=== PATIENT | female | born 1955 | race Caucasian/White ===

== ENCOUNTER 2017-02-13 12:47 | Observation (INO) | payer SELFPAY ==
--- NOTE | 2017-02-13 13:13 | DR.GENAD ---
HPI - PCP Primary Care Physician: RAHEEL HOSKINS - HPI Comment HPI Comment: PAIN IS SHARP AND RADIATES TO THE BACK. PAIN NOT RESPONDING TO ANTACID.PATIENT SAID PAIN WORSE TODAY. SHE IS WEAK SLIGHTLY NAUSEATED. NO FEVER. - Complaint/Symptoms Chief Complaint Doctors Comments: CHEST PAIN UNDER RIGHT BREAST TIMES 3 WEEKS. Chief Complaint:: PT. C/O PAIN UNDER RIGHT BREAST THAT RADIATES THROUGH TO BACK. PT. HAS TAKEN ANTACIDS WITH NO RELIEF. PAIN HAS BEEN INTERMITTENT X 3 WEEKS WHICH WORSENED LAST NIGHT. - Nurses notes reviewed Nurses Notes Review: Yes - Source History Provided: Patient - Mode of Arrival Mode of Arrival: Ambulatory - Timing Onset of Chief Complaint: 02/12/17 Came on: Suddenly - Duration Duration: Intermittent Duration: Weeks - Severity Severity: Moderate PMH - PMH Past Medical History: Yes Past Medical History: Diabetes, Hypertension Past Medical History Comment: FIBROMYALGIA, CARPAL TUNNEL, SPINAL STENOSIS Past Surgical History: Yes Surgical History: Hysterectomy Past Surgical History Comment: CARPAL TUNNEL, HERNIA REPAIR - Family History History of Family Medical Conditions: Yes Family Medical History: Diabetes Mellitus, Hypertension - Social History Does patient currently use any type of tobacco product: No Type of Tobacco Use: None Does any household member use tobacco: No Alcohol Use: None Do you use any recreational Drugs:: No Lives With: Spouse Lives Where: Home - infectious screening In the last 2 months have you had wt loss of >10#?: NO Have you had fever, night sweats or hemotysis?: No Have you traveled outside the country in the last 6 months?: No Isolation: Standard ROS - Review of Systems Constitutional: Weakness, Fatigue. negative: Chills, Diaphoresis, Fever Eyes: No Symptoms Reported. negative: Eye Pain, Discharge ENTM: No Symptoms Reported. negative: Ear Pain, Nose Discharge, Nose Congestion , Throat Pain Respiratoy: Non-Productive Cough, Short of Breath. negative: Productive Cough, Wheezing, Hemoptysis Cardiovascular: Chest Pain. negative: Edema, Palpitations, Syncope Gastrointestinal/Abdominal: Abdominal Pain, Nausea. negative: Constipation, Diarrhea, Vomiting Genitourinary: No Symptoms Reported. negative: Dysuria, Frequency, Hematuria Neurological: Headache, Weakness, Dizziness Musculoskeletal: Muscle Pain Integumentary: Dryness. negative: Rash, Bruises, Juandice Hematologic/Lymphatic: Easy Bleeding, Easy Bruising Endocrine: Increased Urine. negative: Flushing All Other Systems: Reviewed and Negative PE - Vital Signs Vitals: Pulse Rate 85 Respiratory Rate 18 Blood Pressure 226/107 O2 Sat by Pulse Oximetry 99 - General Limitations: No Limitations General Appearance: Alert - Head Head Exam: Normal Inspection - Eyes Eye exam: Normal Appearance - ENT ENT Exam: Normal External Ear Exam External Ear Exam: Normal External Inspection TM/Canal Exam: Bilateral Normal Nose Exam: Normal Nose Exam, Sinus Tenderness, Nasal Deviation Mouth Exam: Normal Inspection Throat Exam: Normal Inspection - Neck Neck Exam: Normal Inspection - Chest Chest Inspection: Symmetric Chest Wall Rise - Respiratory Respiratory Exam: Normal Lung Sounds Bilat Respiratory Exam: Bilateral Clear to Auscultation - Cardiovascular Cardiovascular Exam: Regular Rate, Normal Rhythm, Normal Heart Sounds - Abdominal Exam Abdominal Exam: Normal Bowel Sounds, Soft. negative: Tenderness - Extremities Extremities Exam: Normal Inspection - Back Back Exam: Normal Inspection - Neurologic Neurological Exam: Alert, Oriented X3, CN II-XII Intact, Normal Gait, Reflexes Normal. negative: Motor Sensory Deficit - Psychiatric Psychiatric Exam: Normal Affect, Normal Mood - Skin Skin Exam: Normal Color MDM - Additional Information Additional Information Obtained From: Family - Differential Diagnosis Differential Diagnosis: CHEST PAIN, PE, PNEUMONIA, IN, PUD, CHOLECYSTITIS Course - Treatment Treatment: SEE ORDERS - Consultation Consultation Comments: DISCUSS PATIENT WITH DR. MITCHELL. HE WILL ADMIT PATIENT. - Education/Counseling Education/Counseling: Patient, Family, Education Educated On: Treatment, Diagnosis ROR - Labs Reviewed Laboratory Results Reviewed?: Yes Result Diagrams: 02/14/17 02:20 02/14/17 02:20 - XRAY XRAY Interpreted by: Radiologist XRAY Findings: REPORT DISCUSS WITH PATIENT. - EKG Rhythm: NSR (EKG NOTED.) - Diagnosis Discharge Problem: Elevated d-dimer, Helicobacter positive gastritis Chest pain Qualifiers: Chest pain type: other chest pain Qualified Code(s): R07.89 - Other chest pain ; R07.8 - Other chest pain UTI (urinary tract infection) Qualifiers: Urinary tract infection type: site unspecified Hematuria presence: without hematuria Qualified Code(s): N39.0 - Urinary tract infection, site not specified - Discharge Plan Disposition: ADMITTED INPATIENT Condition: Stable - Follow ups/Referrals - Instructions
[2017-02-13 13:48] LABS: BASOPHILS # (AUTO) 0.1 X10^3/uL (0.0-0.1); BASOPHILS % (AUTO) 0.8 % (0.2-1.0); EOSINOPHILS # (AUTO) 0.5 x10^3/uL (0.0-0.2); EOSINOPHILS % (AUTO) 8.4 % (0.9-2.9); HEMATOCRIT 37.6 % (36.0-47.0); HEMOGLOBIN 12.7 g/dL (12.0-16.0); LYMPHOCYTES % (AUTO) 31.3 % (21.0-51.0); MEAN CORPUSCULAR HEMOGLOBIN 28.1 pg (27.0-34.0); MEAN CORPUSCULAR HGB CONC 33.9 g/dL (33.0-35.0); MEAN CORPUSCULAR VOLUME 82.8 fL (80.0-100.0); MEAN PLATELET VOLUME 8.3 fL (7.4-11.0); MONOCYTES # (AUTO) 0.4 x10^3/uL (0.3-0.8); MONOCYTES % (AUTO) 5.8 % (0.0-13.0); NEUTROPHILS # (AUTO) 3.5 x10^3/uL (2.2-4.8); NEUTROPHILS % (AUTO) 53.7 % (42.0-75.0); PLATELET COUNT 126 X10^3/uL (150.0-450.0); RED BLOOD COUNT 4.54 X10^6/uL (3.5-5.4); WHITE BLOOD COUNT 6.5 X10^3/uL (3.6-10.0)
[2017-02-13 13:59] LABS: APPEARANCE,URINE HAZY (CLEAR); BACTERIA,URINE 4+ /HPF (NEGATIVE); BILIRUBIN,URINE NEGATIVE (NEGATIVE); BLOOD/HEMOGLOBIN,URINE 1+ (NEGATIVE); COLOR,URINE YELLOW (YELLOW); GLUCOSE, URINE 4+ (NEGATIVE); KETONES,URINE NEGATIVE (NEGATIVE); LEUKOCYTE ESTERASE ,URINE 1+ (NEGATIVE); NITRITES,URINE NEGATIVE (NEGATIVE); PROTEIN,URINE 3+ (NEGATIVE); RBC,URINE 0-2 /HPF (NEGATIVE); SQUAMOUS EPITHELIAL CELL,UR NEGATIVE /HPF (NEGATIVE); UROBILINOGEN,URINE NORMAL (NORMAL)
[2017-02-13 14:01] LABS: ALANINE AMINOTRANSFERASE 49 Units/L (12-78); ALBUMIN 3.4 g/dL (3.4-5.0); ALKALINE PHOSPHATASE 90 Units/L (46-116); AMYLASE 55 Units/L (25-115); ASPARTATE AMINO TRANSFERASE 42 Units/L (15-37); BLOOD UREA NITROGEN 19 mg/dL (7-18); CALCIUM 9.3 mg/dL (8.5-10.1); CARBON DIOXIDE 26.2 mmol/L (21-32); CHLORIDE 101 mmol/L (98-107); COR NA(FOR HYPERGLY) 142 mmol/L (136-145); CREATININE 1.24 mg/dL (0.55-1.02); GLUCOSE 312 mg/dL (65-99); LIPASE 377 Units/L (73-393); SODIUM 137 mmol/L (136-145); TOTAL PROTEIN 7.4 g/dL (6.4-8.2); eGFR BLACK RACES 57 (>60); eGFR NON BLACK RACES 47 (>60)
[2017-02-13 14:24] LABS: D DIMER 2690 ng/mL (0-400)
[2017-02-13] MEDS ORDERED: LEVSIN/MAALOX/LIDOC VISC PO ONE (14:59)
[2017-02-13] MEDS ORDERED: CATAPRES TAB 0.2 MG PO ONE (14:59)
[2017-02-13] MEDS ORDERED: PEPCID TAB 20 MG PO ONE (15:01)
[2017-02-13] MEDS ORDERED: LEVSIN/MAALOX/LIDOC VISC ONE (15:03)
[2017-02-13] MEDS ORDERED: PEPCID TAB 20 MG ONE (15:03)
[2017-02-13] MEDS ORDERED: CATAPRES TAB 0.2 MG ONE (15:03)
--- NOTE | 2017-02-13 16:53 | RAD ---
HISTORY: Chest pain. Study: Single-view chest. Comparison: None. Findings: The trachea is midline. The cardiac silhouette is within normal limits. The lungs are clear withou t focal infiltrate or effusion. The bony thorax is unremarkable. IMPRESSION: No acute cardiopulmonary disease. Reported By:
[2017-02-13 17:43] VITALS: BMI 31.2
[2017-02-13] MEDS: NS 1000 ML 1,000 ML IV SCH (17:50)
[2017-02-13 21:00] LABS: CKMB % 1.4 % (<4); CREATINE KINASE 72 Units/L (26-192); CREATINE KINASE MB < 1.0 ng/mL (0-4.0); TROPONIN I < 0.02 ng/mL (0-1.5)
[2017-02-14 02:57] LABS: BASOPHILS % (AUTO) 0.4 % (0.2-1.0); EOSINOPHILS # (AUTO) 0.4 x10^3/uL (0.0-0.2); EOSINOPHILS % (AUTO) 6.1 % (0.9-2.9); HEMATOCRIT 33.1 % (36.0-47.0); HEMOGLOBIN 11.2 g/dL (12.0-16.0); LYMPHOCYTES # (AUTO) 2.1 X10^3/uL (1.3-2.9); LYMPHOCYTES % (AUTO) 32.3 % (21.0-51.0); MEAN CORPUSCULAR HEMOGLOBIN 28.1 pg (27.0-34.0); MEAN CORPUSCULAR HGB CONC 33.9 g/dL (33.0-35.0); MEAN CORPUSCULAR VOLUME 82.9 fL (80.0-100.0); MEAN PLATELET VOLUME 8.6 fL (7.4-11.0); MONOCYTES # (AUTO) 0.4 x10^3/uL (0.3-0.8); MONOCYTES % (AUTO) 6.2 % (0.0-13.0); NEUTROPHILS # (AUTO) 3.6 x10^3/uL (2.2-4.8); PLATELET COUNT 110 X10^3/uL (150.0-450.0); RED BLOOD COUNT 3.99 X10^6/uL (3.5-5.4); WHITE BLOOD COUNT 6.6 X10^3/uL (3.6-10.0)
[2017-02-14 03:04] LABS: CHLORIDE 104 mmol/L (98-107); SODIUM 139 mmol/L (136-145)
[2017-02-14 03:09] LABS: CKMB % 1.6 % (<4); CREATINE KINASE 64 Units/L (26-192); CREATINE KINASE MB < 1.0 ng/mL (0-4.0); TROPONIN I < 0.02 ng/mL (0-1.5)
[2017-02-14 03:25] LABS: ALANINE AMINOTRANSFERASE 40 Units/L (12-78); ALKALINE PHOSPHATASE 73 Units/L (46-116); ASPARTATE AMINO TRANSFERASE 37 Units/L (15-37); BLOOD UREA NITROGEN 20 mg/dL (7-18); CALCIUM 8.4 mg/dL (8.5-10.1); CARBON DIOXIDE 28.4 mmol/L (21-32); CHOL/HDL RATIO 4.7 (0.0-5.0); CHOLESTEROL 192 mg/dL (0-200); COR CA(FOR HYPOALB) 9.2 mg/dL (8.5-10.1); COR NA(FOR HYPERGLY) 142 mmol/L (136-145); CREATININE 1.06 mg/dL (0.55-1.02); GLUCOSE 231 mg/dL (65-99); HDL CHOLESTEROL 41 mg/dL (40-60); TOTAL PROTEIN 5.9 g/dL (6.4-8.2); TRIGLYCERIDES 244 mg/dL (0-150); eGFR BLACK RACES > 60 (>60); eGFR NON BLACK RACES 56 (>60)
[2017-02-14] MEDS ORDERED: HumuLIN R SC PRN ×2 (04:40→05:19)
[2017-02-14] MEDS: NS 1000 ML 1,000 ML IV SCH (06:15)
[2017-02-14] MEDS ORDERED: CATAPRES TAB 0.2 MG PO SCH (09:00)
[2017-02-14] MEDS ORDERED: ROCEPHIN VIAL 1 GM 1 GM in NS 50 ML IV + SPIKE MINIBAG* 50 ML IV SCH (09:00)
--- NOTE | 2017-02-14 10:02 | NM ---
History: Elevated D-dimer, shortness of breath, chest pain Study: Nuclear medicine VQ scan Findings: 30.3 millicuries of Tc 9 M aerosolized DTPA was inhaled equilibrium with imaging in multip le planes performed. 5.4 millicuries of Tc 9 M macro aggregated albumin was then administered intrav enously with similar imaging performed. Correlation is made with the previous day's chest radiograph . There is uniform bilateral ventilation and profusion with no segmental or subsegmental perfusion d efects identified. Impression: Normal V/Q scan with almost 0 probability of pulmonary embolus. Reported By:
[2017-02-14] MEDS ORDERED: MAALOX or MYLANTA PO PRN (12:34)
[2017-02-14 14:39] VITALS: BP 128/63
--- NOTE | 2017-02-21 22:43 | DR.CARTERS ---
Short Stay Summary - Short Stay Summary for: Short Stay Summary for Date of:: 02/13/17 - Admission Date Date of Admission: 02/13/17 - Discharge Date Discharge Date: 02/14/17 - Admission Diagnoses (1) Chest pain Status: Acute (2) Elevated d-dimer Status: Acute (3) Helicobacter positive gastritis Status: Acute (4) UTI (urinary tract infection) Status: Acute - Hospital Course Hospital Course: PT. C/O PAIN UNDER RIGHT BREAST THAT RADIATES THROUGH TO BACK. PT. HAS TAKEN ANTACIDS WITH NO RELIEF. PAIN HAS BEEN INTERMITTENT X 3 WEEKS WHICH WORSENED LAST NIGHT. THE PATIENT HAD ELEVATED D DIMER WITH NEGATIVE LUNG SCAN. LABS WERE STABLE. PATIENT'S PAIN DID IMPROVE. WAS FELT STABLE FOR DC AND WAS DC HOME TO BE FOLLOWED ON OP BASIS. - Discharge Medications Discharge Medications: Amoxicillin/Potassium Clav [Amox-Clav 500-125 mg Tablet] 1 tab PO Q12H 02/13/17 [History] Benzonatate [TESSALON PERLES *] 100 mg PO TID 02/13/17 [History] Glipizide [Glipizide 10 mg] 10 mg PO BID 02/13/17 [History] Ibuprofen 200 mg PO PRN PRN 02/13/17 [History] Insulin Detemir (Levemir) [LEVEMIR INSULIN *] 20 units SQ PC 02/13/17 [History] Insulin Detemir (Levemir) [LEVEMIR INSULIN *] 25 units SQ PC 02/13/17 [History] Insulin Detemir (Levemir) [LEVEMIR INSULIN *] 50 units SQ HS 02/13/17 [History] Levothyroxine Sodium 50 mg PO 02/13/17 [History] Lisinopril 20 mg PO BID 02/13/17 [History] Lovastatin 20 mg PO DAILY 02/13/17 [History] Metformin HCl [Glucophage] 1,000 mg PO BID 02/13/17 [History] - Discharge Plan Disposition: 01 HOME, SELF-CARE Condition: Stable - Follow up/Referrals Follow up/Referrals: CHEPE ALMODOVAR [Primary Care Provider] - 3 days - Instructions Instructions: Hypertension, Angina Pectoris, [id number]
== END 2017-02-14 15:09 | disposition home or self-care (01) ==
LOC: ER 12:55 → MED/SURG 16:10
PROVIDERS: ADMIT Internal Medicine; ATTEND Internal Medicine
DX: R07.89 Other chest pain (principal); N39.0 Urinary tract infection, site not specified; B96.81 Helicobacter pylori [H. pylori] as the cause of diseases classified elsewhere; B96.29 Other Escherichia coli [E. coli] as the cause of diseases classified elsewhere; I10 Essential (primary) hypertension; R79.1 Abnormal coagulation profile; D64.89 Other specified anemias; R94.4 Abnormal results of kidney function studies; R74.8 Abnormal levels of other serum enzymes; R94.31 Abnormal electrocardiogram [ECG] [EKG]; E11.65 Type 2 diabetes mellitus with hyperglycemia; Z79.4 Long term (current) use of insulin
CPT/HCPCS: 36415; 71010; 78582; 80053; 80061; 81001; 82009; 82150; 82550; 82553; 83690; 84484; 85025; 85378; 86677; 87086; 87088; 87186; 93005; 93010; 94760; 96365; 99218; 99284; A4222; G0378; J0696; J1815

== ENCOUNTER → 2017-03-22 | Outpatient (CLI) | payer SELFPAY ==
--- NOTE | 2017-03-22 09:35 | US ---
RIGHT UPPER QUADRANT ULTRASOUND HISTORY: RUQ pain Comparison: None Technique: Multiple arguelles scale and color flow Doppler images of the right upper quadrant were obtain ed. Findings: Overall study is limited by overlying bowel gas. The liver is normal in echotexture and size. No fo cassandra mass. No intrahepatic bile duct dilatation. No gallstones. No pericholecystic fluid or gallbladd er wall thickening. The technologist did not report a positive sonographic Mejía's sign. The common bile duct measures 3 mm. The right kidney measures 8.4 cm. No hydronephrosis or renal masses. The pancreas is obscured by o verlying bowel gas. IMPRESSION: 1. Negative right upper quadrant ultrasound. Reported By:
== END ==
LOC: RAD 08:54
PROVIDERS: ATTEND Nurse Practitioner Family
DX: R11.2 Nausea with vomiting, unspecified (principal); R10.11 Right upper quadrant pain; K90.49 Malabsorption due to intolerance, not elsewhere classified; K21.9 Gastro-esophageal reflux disease without esophagitis
CPT/HCPCS: 76705

== ENCOUNTER → 2017-03-25 | Outpatient (CLI) | payer SELFPAY ==
--- NOTE | 2017-03-25 12:25 | NM ---
HISTORY: Right upper quadrant pain Study: Nuclear medicine HIDA scan with ejection fraction Comparison: None Technique: Multiple scintigraphic images of the abdomen were obtained the intravenous administration of 5.5 mCi of technetium labeled Choletec. Following distention of the gallbladder with radiotracer the patient received a fatty meal.. An est imated gallbladder ejection fraction was calculated based on the physiologic response of this infusi on. Findings: Homogeneous uptake of radiotracer is seen throughout the liver. This intrabiliary ductal system is observed normally. The common hepatic and common bile duct grossly appear unremarkable with normal biliary-bowel transit. The gallbladder is observed to fill normally. After the fatty meal a normal gallbladder ejection fraction of 35.4% (normal > 35%) is observed. IMPRESSION: 1. Normal hepatobiliary imaging scan. 2. Normal gallbladder ejection fraction 35.4% Reported By:
== END ==
LOC: RAD 08:44
PROVIDERS: ATTEND Nurse Practitioner Family
DX: R11.2 Nausea with vomiting, unspecified (principal); R10.11 Right upper quadrant pain; K90.49 Malabsorption due to intolerance, not elsewhere classified; K21.9 Gastro-esophageal reflux disease without esophagitis
CPT/HCPCS: 78227

== ENCOUNTER 2017-04-06 02:02 | Emergency (ER) | payer SELFPAY ==
[2017-04-06 02:13] VITALS: BP 177/90; BMI 30.6
--- NOTE | 2017-04-06 02:46 | DR.GENAD ---
HPI - PCP Primary Care Physician: PAULA - Complaint/Symptoms Chief Complaint:: "I AM SHORT OF BREATH FOR THE LAST FEW DAYS. I AM ALWAYS SHORT OF BREATH BUT LAST FEW DAYS AND TONIGHT IT HAS BEEN WORSE, I CAN HEAR MYSELF WHEEZING. 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 IT FEELS LIKE A SUNBURN ON THE INSIDE." - Source History Provided: Patient - Mode of Arrival Mode of Arrival: Ambulatory - Timing Onset of Chief Complaint: 04/06/17 PMH - PMH Past Medical History: Yes Past Medical History: Diabetes, Hypertension Past Surgical History: Yes Surgical History: Hysterectomy - Family History History of Family Medical Conditions: No Family Medical History: Diabetes Mellitus, Hypertension - Social History Does patient currently use any type of tobacco product: No Have you used tobacco products in the last 12 months: No Type of Tobacco Use: None Does any household member use tobacco: No Alcohol Use: None Do you use any recreational Drugs:: No Lives With: Spouse Lives Where: Home - infectious screening Have you traveled outside the country in the last 6 months?: No Isolation: Standard ROS - Review of Systems Eyes: No Symptoms Reported ENTM: No Symptoms Reported Respiratoy: No Symptoms Reported Cardiovascular: No Symptoms Reported Gastrointestinal/Abdominal: No Symptoms Reported Genitourinary: No Symptoms Reported, Discharge Neurological: No Symptoms Reported Musculoskeletal: No Symptoms Reported Integumentary: No Symptoms Reported Hematologic/Lymphatic: No Symptoms Reported Endocrine: No Symptoms Reported Psychiatric: No Symptoms Reported All Other Systems: Reviewed and Negative PE - Vital Signs Vitals: Temperature 97.9 F Pulse Rate 90 Respiratory Rate 20 Blood Pressure [Left Arm] 128/63 Blood Pressure 177/90 O2 Sat by Pulse Oximetry 98 - General Limitations: No Limitations General Appearance: Alert - Head Head Exam: Normal Inspection - Eyes Eye exam: Normal Appearance, PERRL, EOMI - ENT ENT Exam: Normal Exam, Normal Oropharynx External Ear Exam: Normal External Inspection TM/Canal Exam: Bilateral Normal Nose Exam: Normal Nose Exam, Sinus Tenderness Mouth Exam: Normal Inspection Throat Exam: Normal Inspection - Neck Neck Exam: Normal Inspection, Full ROM - Chest Chest Inspection: Normal Inspection - Respiratory Respiratory Exam: Normal Lung Sounds Bilat Respiratory Exam: Bilateral Clear to Auscultation - Cardiovascular Cardiovascular Exam: Regular Rate, Normal Rhythm - Abdominal Exam Abdominal Exam: Normal Inspection, Normal Bowel Sounds Abdominal Tenderness: negative: RUQ, RLQ, LUQ, LLQ, Epigastrium, Suprapubic, Diffuse, Mild, Moderate, Severe, Other - Extremities Extremities Exam: Normal Inspection, Full ROM - Back Back Exam: Normal Inspection, Full ROM - Neurologic Neurological Exam: Alert, Oriented X3, CN II-XII Intact - Psychiatric Psychiatric Exam: Normal Affect, Normal Mood - Skin Skin Exam: Warm, Dry, Intact ROR - XRAY XRAY Interpreted by: Radiologist (Thoracic Spine: moderate degenerative disc changes are seen throughout the thoracic spine. 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
--- NOTE | 2017-04-06 03:25 | RAD ---
EXAM: Thoracic Spine X-Ray INDICATION: Thoracic pain COMPARISION: No priors for comparison TECHNIQUE: AP and lateral views were obtained, two views FINDINGS: Moderate disk space narrowing is seen throughout the thoracic levels. No acute fracture or subluxati on. The vertebral body heights are preserved. The visualized pedicles are intact. IMPRESSION: Moderate degenerative disc changes are seen throughout the thoracic spine. No acute abnormality is i dentified. Reported By:
== END 2017-04-06 03:54 | disposition home or self-care (01) ==
LOC: ER 02:02
DX: M47.814 Spondylosis without myelopathy or radiculopathy, thoracic region (principal)
CPT/HCPCS: 72072; 99282

== ENCOUNTER 2017-10-31 23:44 | Emergency (ER) | payer SELFPAY ==
[2017-10-31 23:49] VITALS: BMI 31.9
--- NOTE | 2017-11-01 00:40 | DR.SOBA ---
HPI - Time Seen Time seen: 00:15 - Primary Care Physician Primary Care Physician: RICARDA ALMODOVAR - HPI Comment HPI Comment: PATIENT IS 62YR OLD WHITE FEMALE WITH HISTORY OF HYPERTENSION, HYPOTHYROIDISM, HYLIPIDEMIA AND DIABETES WHO PRESENTS TO ED WITH INCREASING SOB AND CHEST PAIN. TONIGHT SHE COULD NOT BREATH. SHE IS WEAK BUT NO FEVER. SHE IS WHEEZING. - Complaints Chief Complaint Doctors Comments: INCREASING SOB TIMES 3 TO 4 DAYS. TONIGHT CHEST PAIN ALSO. Chief Complaint:: SHORT OF BREATH FOR SEVERAL DAYS, SEEN MY GRAPHIC TECHNICIAN RICARDA ALMODOVAR TODAY BUT SHE DIDN'T DO ANYTHING BC SHE DOESN'T KNOW WHAT IT IS. I AM WHEEZING, SO THIS IS LIKE ASTHMA. - Reviewed Nurses Notes Reviewed: Yes - Source History Provided: Patient - Mode of Arrival Mode of Arrival: Ambulatory - Timing Onset of Chief Complaint: 10/28/17 - Duration Duration: Days - Context Onset:: At Rest, With Light Exertion PE Risk Factors:: None History of:: None Currently on:: Neither Prehospital Care:: None - Modifying Factors Worsens:: Nothing Improves:: Nothing - Associated Signs and Symptoms Associated Signs and Symptoms: Wheeze, Cough - If Chest Pain Quality: Sharp, Pressure like Location: Substernal - If Cough Cough: Nonproductive, White PMH - PMH Past Medical History: Yes Past Medical History: Diabetes, Hypertension Past Surgical History: Yes Surgical History: Hysterectomy - Family History History of Family Medical Conditions: Yes Family Medical History: Diabetes Mellitus, Hypertension - Social History Does patient currently use any type of tobacco product: No Have you used tobacco products in the last 12 months: No Type of Tobacco Use: None Alcohol Use: None Do you use any recreational Drugs:: No Lives With: Spouse Lives Where: Home - infectious screening Have you traveled outside the country in the last 6 months?: No Isolation: Standard ROS - Review of Systems Constitutional: Weakness, Fatigue. negative: Chills, Diaphoresis, Fever Eyes: negative: Eye Pain, Discharge ENTM: Nose Congestion. negative: Ear Pain, Nose Discharge, Throat Pain Respiratoy: Productive Cough, Short of Breath, Wheezing. negative: Hemoptysis Cardiovascular: Chest Pain. negative: Edema, Palpitations Gastrointestinal/Abdominal: negative: Abdominal Pain, Diarrhea, Nausea, Vomiting Genitourinary: No Symptoms Reported. negative: Dysuria, Frequency, Hematuria Neurological: Weakness, Dizziness. negative: Headache Musculoskeletal: No Symptoms Reported Integumentary: No Symptoms Reported Hematologic/Lymphatic: No Symptoms Reported Endocrine: No Symptoms Reported All Other Systems: Reviewed and Negative PE - Vital Signs Vitals: Temperature 97.6 F Pulse Rate [Right Brachial] 97 Pulse Rate [Apical] 100 Pulse Rate 107 Respiratory Rate 19 Blood Pressure [Left Arm] 115/59 Blood Pressure 154/71 O2 Sat by Pulse Oximetry 100 - General Limitations: No Limitations General Appearance: Alert - Head Head Exam: Normal Inspection - Eyes Eye exam: Normal Appearance - ENT ENT Exam: Normal External Ear Exam - Neck Neck Exam: Trachea Midline - Chest Chest Inspection: Symmetric Chest Wall Rise - Respiratory Respiratory Exam: Respiratory Distress. negative: Chest Wall Tenderness Respiratory Exam: Bilateral Wheezing, Bilateral Rhonchi, Upper Rhonchi, Lower Wheezing, Lower Rhonchi - Cardiovascular Cardiovascular Exam: Regular Rate, Normal Rhythm, Normal Heart Sounds - Abdominal Exam Abdominal Exam: Normal Bowel Sounds, Soft. negative: Tenderness - Extremities Extremities Exam: Normal Inspection. negative: Edema - Back Back Exam: Normal Inspection - Neurologic Neurological Exam: Alert, Oriented X3, CN II-XII Intact. negative: Motor Sensory Deficit - Psychiatric Psychiatric Exam: Anxious - Skin Skin Exam: Normal Color MDM - Additional Information Obtained Additional Information Obtained From: Family - Differential Diagnosis Differential Diagnosis: Asthma, Bronchitis, CHF, COPD, Dysrhythmia, Mycardial Infarction, Pneumonia, Pneumothorax, Pulmonary embolism, Sinusitis Course - Treatment Treatment: SEE ORDERS. - Consultation Consultation Comments: PATIENT ACEPTED FOR TRANSFER BY DR. DAVENPORT AT [facility] IN [place]. - Education/Counseling Education/Counseling: Patient, Family, Education Educated On: Treatment, Diagnosis, Needs for Follow Up ROR - Labs Reviewed Laboratory Results Reviewed?: Yes Result Diagrams: 11/01/17 00:09 11/01/17 00:09 Laboratory: WBC 7.1 X10^3/uL (3.6-10.0) 11/01/17 00:09 RBC 3.36 X10^6/uL (3.5-5.4) L 11/01/17 00:09 Hgb 8.0 g/dL (12.0-16.0) L 11/01/17 00:09 Hct 25.0 % (36.0-47.0) L 11/01/17 00:09 MCV 74.5 fL (80.0-100.0) L 11/01/17 00:09 MCH 23.8 pg (27.0-34.0) L 11/01/17 00:09 MCHC 32.0 g/dL (33.0-35.0) L 11/01/17 00:09 RDW 16.8 % (11.6-16.5) H 11/01/17 00:09 Plt Count 165 X10^3/uL (150.0-450.0) 11/01/17 00:09 Plt Count Comment Adequate (ADEQUATE) 11/01/17 00:09 MPV 9.0 fL (7.4-11.0) 11/01/17 00:09 Neut % (Auto) 53.3 % (42.0-75.0) 11/01/17 00:09 Lymph % (Auto) 33.5 % (21.0-51.0) 11/01/17 00:09 [place] % (Auto) 5.1 % (0.0-13.0) 11/01/17 00:09 Eos % (Auto) 7.2 % (0.9-2.9) H 11/01/17 00:09 Baso % (Auto) 0.9 % (0.2-1.0) 11/01/17 00:09 Neut # (Auto) 3.8 x10^3/uL (2.2-4.8) 11/01/17 00:09 Lymph # (Auto) 2.4 X10^3/uL (1.3-2.9) 11/01/17 00:09 [place] # (Auto) 0.4 x10^3/uL (0.3-0.8) 11/01/17 00:09 Eos # (Auto) 0.5 x10^3/uL (0.0-0.2) H 11/01/17 00:09 Baso # (Auto) 0.1 X10^3/uL (0.0-0.1) 11/01/17 00:09 Absolute Nucleated RBC 0.0 /100WBC 11/01/17 00:09 Plt Morphology Comment Normal (NORMAL) 11/01/17 00:09 RBC Morphology Abnormal (NORMAL) A 11/01/17 00:09 Hypochromasia 1+ A 11/01/17 00:09 INR Target Range - 11/01/17 00:09 INR 1.03 (0.8-1.3) 11/01/17 00:09 APTT 33.0 SECONDS (22.9-36.5) 11/01/17 00:09 PTT Comment - 11/01/17 00:09 D-Dimer 180 ng/mL (0-400) 11/01/17 00:09 Sodium 139 mmol/L (136-145) 11/01/17 00:09 Corrected Sodium 145 mmol/L (136-145) 11/01/17 00:09 Potassium 4.9 mmol/L (3.5-5.1) 11/01/17 00:09 Chloride 103 mmol/L (98-107) 11/01/17 00:09 Carbon Dioxide 25.3 mmol/L (21-32) 11/01/17 00:09 BUN 46 mg/dL (7-18) H 11/01/17 00:09 Creatinine 1.61 mg/dL (0.55-1.02) H 11/01/17 00:09 Est GFR (MDRD) Af Amer 42 (>60) L 11/01/17 00:09 Est GFR (MDRD) Non-Af 34 (>60) L 11/01/17 00:09 Glucose 346 mg/dL (65-99) H 11/01/17 00:09 Calcium 9.3 mg/dL (8.5-10.1) 11/01/17 00:09 Corrected Calcium TNP 11/01/17 00:09 Magnesium 1.9 mg/dL (1.7-2.9) 11/01/17 00:09 Total Bilirubin 0.20 mg/dL (0.2-1.0) 11/01/17 00:09 AST 37 Units/L (15-37) 11/01/17 00:09 ALT 30 Units/L (12-78) 11/01/17 00:09 Alkaline Phosphatase 68 Units/L (46-116) 11/01/17 00:09 Creatine Kinase 177 Units/L (26-192) 11/01/17 00:09 CK-MB (CK-2) 4.9 ng/mL (0-4.0) H* 11/01/17 00:09 CK/CKMB % Calc 2.8 % (<4) 11/01/17 00:09 Troponin I 1.17 ng/mL (0-1.5) 11/01/17 00:09 B-Natriuretic Peptide 105 pg/mL (0-79) H 11/01/17 00:09 Total Protein 7.0 g/dL (6.4-8.2) 11/01/17 00:09 Albumin 3.4 g/dL (3.4-5.0) 11/01/17 00:09 Globulin 3.6 g/dL (2.5-4.5) 11/01/17 00:09 Albumin/Globulin Ratio 0.9 Ratio (1.1-2.1) L 11/01/17 00:09 Stool Description Fob tube 11/01/17 01:52 Stl Occult Blood (IFOB) Negative (NEGATIVE) 11/01/17 01:52 Acetone, Semi-Quant Negative (NEGATIVE) 11/01/17 00:09 - XRAY XRAY Interpreted by: Radiologist XRAY Findings: REPORT DISCUSS WITH PATIENT AND HER . - EKG Rhythm: ST - Diagnosis Discharge Problem: Respiratory distress Chest pain Qualifiers: Chest pain type: precordial pain Qualified Code(s): R07.2 - Precordial pain HTN (hypertension) Qualifiers: Hypertension type: essential hypertension Qualified Code(s): I10 - Essential ( primary) hypertension Dyspnea Qualifiers: Dyspnea type: shortness of breath Qualified Code(s): R06.02 - Shortness of breath Diabetes Qualifiers: Diabetes mellitus type: type 2 Diabetes mellitus oil heaterman insulin use: with oil heaterman use Diabetes mellitus complication status: with hyperglycemia Qualified Code(s): E11.65 - Type 2 diabetes mellitus with hyperglycemia Anemia Qualifiers: Anemia type: unspecified type Qualified Code(s): D64.9 - Anemia, unspecified - Discharge Plan Disposition: [facility] Condition: Stable - Follow ups/Referrals Follow ups/Referrals: CHEPE ALMODOVAR [Primary Care Provider] - 3 days - Instructions
--- NOTE | 2017-11-01 00:40 | RAD ---
Chest, one view Indication: Shortness of breath Comparison: 02/13/2017 Findings: Heart size is normal. There is mild peribronchial thickening. No focal consolidation, signi ficant effusion or pneumothorax is identified. There is no acute osseous abnormality. Impression: Mild peribronchial thickening, suggestive for bronchitis. Reported By:
[2017-11-01 00:42] LABS: BLOOD UREA NITROGEN 46 mg/dL (7-18); CALCIUM 9.3 mg/dL (8.5-10.1); CARBON DIOXIDE 25.3 mmol/L (21-32); CHLORIDE 103 mmol/L (98-107); COR NA(FOR HYPERGLY) 145 mmol/L (136-145); CREATININE 1.61 mg/dL (0.55-1.02); SODIUM 139 mmol/L (136-145); TROPONIN I 1.17 ng/mL (0-1.5); eGFR BLACK RACES 42 (>60); eGFR NON BLACK RACES 34 (>60)
[2017-11-01 00:45] LABS: BASOPHILS # (AUTO) 0.1 X10^3/uL (0.0-0.1); BASOPHILS % (AUTO) 0.9 % (0.2-1.0); EOSINOPHILS # (AUTO) 0.5 x10^3/uL (0.0-0.2); MONOCYTES # (AUTO) 0.4 x10^3/uL (0.3-0.8); WHITE BLOOD COUNT 7.1 X10^3/uL (3.6-10.0)
[2017-11-01 00:48] LABS: B-TYPE NATRIURETIC PEPTIDE 105 pg/mL (0-79)
[2017-11-01 00:53] LABS: EOSINOPHILS % (AUTO) 7.2 % (0.9-2.9); LYMPHOCYTES # (AUTO) 2.4 X10^3/uL (1.3-2.9); LYMPHOCYTES % (AUTO) 33.5 % (21.0-51.0); MEAN CORPUSCULAR HEMOGLOBIN 23.8 pg (27.0-34.0); MEAN CORPUSCULAR VOLUME 74.5 fL (80.0-100.0); MONOCYTES % (AUTO) 5.1 % (0.0-13.0); NEUTROPHILS # (AUTO) 3.8 x10^3/uL (2.2-4.8); NEUTROPHILS % (AUTO) 53.3 % (42.0-75.0); PLATELET COUNT 165 X10^3/uL (150.0-450.0); RED BLOOD COUNT 3.36 X10^6/uL (3.5-5.4); RED CELL DISTRIBUTION WIDTH 16.8 % (11.6-16.5)
[2017-11-01 00:58] LABS: HYPOCHROMASIA 1+; PLATELET MORPHOLOGY COMMENT NORMAL (NORMAL)
[2017-11-01 01:04] LABS: ALANINE AMINOTRANSFERASE 30 Units/L (12-78); ALBUMIN 3.4 g/dL (3.4-5.0); ALKALINE PHOSPHATASE 68 Units/L (46-116); ASPARTATE AMINO TRANSFERASE 37 Units/L (15-37); CKMB % 2.8 % (<4); CREATINE KINASE 177 Units/L (26-192); MAGNESIUM 1.9 mg/dL (1.7-2.9)
[2017-11-01] MEDS ORDERED: ASPIRIN PO ONE (01:04)
[2017-11-01] MEDS ORDERED: ASPIRIN ONE (01:05)
[2017-11-01 01:07] LABS: CREATINE KINASE MB 4.9 ng/mL (0-4.0)
[2017-11-01] MEDS ORDERED: FLAGYL IV PREMIX 500 MG BAG 500 MG/100 ML BAG IV ONE (01:34)
[2017-11-01] MEDS ORDERED: HEPARIN SODIUM IN D5W 25,000 UNITS/500 ML BAG IV PRN (01:36)
[2017-11-01] MEDS ORDERED: HEPARIN SODIUM IN D5W 25,000 UNITS/500 ML BAG IV ONE (01:37)
[2017-11-01] MEDS ORDERED: HEPARIN SODIUM INJ 5000 UNITS IVP ONE (01:42)
[2017-11-01] MEDS ORDERED: HEPARIN SODIUM INJ 5000 UNITS ONE (01:43)
[2017-11-01] MEDS ORDERED: ZOFRAN INJ 4 MG VIAL IVP ONE (02:00)
[2017-11-01] MEDS ORDERED: MORPHINE SULFATE INJ 4 MG IVP ONE (02:00)
[2017-11-01] MEDS ORDERED: ZOFRAN INJ 4 MG VIAL ONE (02:01)
[2017-11-01] MEDS ORDERED: MORPHINE SULFATE INJ 4 MG ONE (02:02)
[2017-11-01] MEDS ORDERED: NITROSTAT SL PRN (02:09)
[2017-11-01] MEDS ORDERED: NITROSTAT SL ONE (02:24)
[2017-11-01] MEDS ORDERED: NS 1000 ML 1,000 ML ONE (02:24)
[2017-11-01] MEDS ORDERED: NITROGLYCERIN IV PREMIX 50 MG 50 MG/250 ML BAG IV ONE (02:26)
[2017-11-01] MEDS ORDERED: NITROGLYCERIN IV PREMIX 50 MG 50 MG/250 ML BAG IV PRN (02:30)
[2017-11-01 02:41] VITALS: BP 115/59
== END 2017-11-01 02:41 | disposition short-term general hospital (02) ==
LOC: ER 23:50
DX: R06.03 Acute respiratory distress (principal); R07.2 Precordial pain; I10 Essential (primary) hypertension; R06.02 Shortness of breath; E11.65 Type 2 diabetes mellitus with hyperglycemia; D64.89 Other specified anemias
CPT/HCPCS: 36415; 71045; 80053; 82009; 82274; 82550; 82553; 83735; 83880; 84484; 85025; 85378; 85610; 85730; 87040; 93005; 93010; 93041; 96365; 96367; 96374; 96375; 99285; A4216; A4222; J1644; J2270; J2405

== ENCOUNTER 2024-09-24 08:46 | Observation (INO) ==
[2024-09-24 09:21] LABS: BASOPHILS % (AUTO) 0.5 % (0.2-1.0); EOSINOPHILS # (AUTO) 0.1 x10^3/uL (0.0-0.2); EOSINOPHILS % (AUTO) 3.8 % (0.9-2.9); LYMPHOCYTES # (AUTO) 1.1 X10^3/uL (1.3-2.9); LYMPHOCYTES % (AUTO) 29.3 % (21.0-51.0); MEAN CORPUSCULAR HEMOGLOBIN 29.6 pg (27.0-34.0); MEAN CORPUSCULAR HGB CONC 34.2 g/dL (33.0-35.0); MEAN CORPUSCULAR VOLUME 86.6 fL (80.0-100.0); MEAN PLATELET VOLUME 7.3 fL (7.4-11.0); MONOCYTES # (AUTO) 0.3 x10^3/uL (0.3-0.8); MONOCYTES % (AUTO) 7.7 % (0.0-13.0); NEUTROPHILS # (AUTO) 2.3 x10^3/uL (2.2-4.8); NEUTROPHILS % (AUTO) 58.7 % (42.0-75.0); PLATELET COUNT 126 X10^3/uL (150.0-450.0); RED BLOOD COUNT 2.22 X10^6/uL (3.5-5.4); RED CELL DISTRIBUTION WIDTH 19.7 % (11.6-16.5); WHITE BLOOD COUNT 3.9 X10^3/uL (3.6-10.0)
[2024-09-24 09:28] LABS: HEMOGLOBIN A1C 6.9 %
[2024-09-24 09:41] LABS: ALBUMIN 1.2 g/dL (3.4-5.0); CALCIUM 7.7 mg/dL (8.5-10.1); CARBON DIOXIDE 22.9 mmol/L (21-32); COR CA(FOR HYPOALB) 9.9 mg/dL (8.5-10.1); CREATININE 2.45 mg/dL (0.55-1.02); POTASSIUM 3.1 mmol/L (3.5-5.1); TOTAL PROTEIN 4.5 g/dL (6.4-8.2); TSH (3RD GENERATION) 3.068 uIU/mL (0.358-3.74); URIC ACID 5.4 mg/dL (2.6-6.0)
[2024-09-24 09:49] LABS: HEMOGLOBIN 6.6 g/dL (12.0-16.0)
[2024-09-24 09:50] LABS: HEMATOCRIT 19.2 % (36.0-47.0)
[2024-09-24] MEDS: NS 500 ML IV 500 ML IV ONE (14:42)
[2024-09-24 17:24] VITALS: BMI 26.9
[2024-09-24] MEDS ORDERED: PHARMACY CONSULT LTC MEDICATIONS XX SCH (18:00)
[2024-09-24] MEDS: NS 1,000 ML IV 1,000 ML IV SCH (18:04)
[2024-09-24] MEDS: PROTONIX INJ 40 MG VIAL IVP SCH (18:05)
[2024-09-24] MEDS: SNACK - Diabetic Appropriate PO SCH (20:10)
[2024-09-24] MEDS: ZESTRIL TAB 5 MG PO SCH (20:40)
[2024-09-24] MEDS: CRESTOR TAB 10 MG PO SCH (20:40)
--- NOTE | 2024-09-24 23:43 | RAD ---
EXAM: CHEST, 1 VIEW HISTORY: SOB; COMPARISON: CT chest without contrast from January 23, 2021 TECHNIQUE: Chest radiographic imaging, AP portable projection, 1 image FINDINGS: No cardiomegaly. No focal airspace disease. No pleural effusion. No pneumothorax. No acute osseous abnormality. IMPRESSION: No imaging findings of acute cardiopulmonary disease. THIS IS AN ELECTRONICALLY VERIFIED FINAL REPORT 09/24/2024 11:40 PM - Electronically signed by Gaurang Palafox MD
[2024-09-25 05:07] LABS: BASOPHILS # (AUTO) 0.1 X10^3/uL (0.0-0.1); EOSINOPHILS # (AUTO) 0.1 x10^3/uL (0.0-0.2); EOSINOPHILS % (AUTO) 1.5 % (0.9-2.9); HEMATOCRIT 24.9 % (36.0-47.0); HEMOGLOBIN 8.6 g/dL (12.0-16.0); LYMPHOCYTES # (AUTO) 1.4 X10^3/uL (1.3-2.9); LYMPHOCYTES % (AUTO) 26.2 % (21.0-51.0); MEAN CORPUSCULAR HEMOGLOBIN 29.8 pg (27.0-34.0); MEAN CORPUSCULAR HGB CONC 34.5 g/dL (33.0-35.0); MEAN CORPUSCULAR VOLUME 86.4 fL (80.0-100.0); MONOCYTES # (AUTO) 0.4 x10^3/uL (0.3-0.8); MONOCYTES % (AUTO) 6.4 % (0.0-13.0); NEUTROPHILS # (AUTO) 3.5 x10^3/uL (2.2-4.8); NEUTROPHILS % (AUTO) 64.9 % (42.0-75.0); PLATELET COUNT 180 X10^3/uL (150.0-450.0); RED BLOOD COUNT 2.88 X10^6/uL (3.5-5.4); RED CELL DISTRIBUTION WIDTH 19.5 % (11.6-16.5); WHITE BLOOD COUNT 5.5 X10^3/uL (3.6-10.0)
[2024-09-25 05:20] LABS: ALBUMIN 1.3 g/dL (3.4-5.0); CARBON DIOXIDE 20.6 mmol/L (21-32); COR CA(FOR HYPOALB) 10.2 mg/dL (8.5-10.1); CREATININE 2.14 mg/dL (0.55-1.02); MAGNESIUM 1.5 mg/dL (2.0-2.9); POTASSIUM 3.5 mmol/L (3.5-5.1); TOTAL PROTEIN 5.3 g/dL (6.4-8.2)
[2024-09-25] MEDS: SYNTHROID 50 mcg TAB PO SCH (05:39)
[2024-09-25 05:52] LABS: IRON 22 ug/dL (50-175); TOTAL IRON BINDING CAPACITY 100 ug/dL (250-450)
[2024-09-25] MEDS ORDERED: CONSULT PHARMACY - POTASSIUM & MAGNESIUM XX SCH (06:00)
--- NOTE | 2024-09-25 08:36 | DR.H&P ---
H&P History & Physical for Day of: H&P Date: 09/24/24 Chief Complaint Chief Complaint: ANEMIA History of Present Illness History of Present Illness: PT IS 69 WF, DIRECT ADMIT FROM [facility] WITH HBG 6.6. PT WAS STARTED WITH OUTPT BLOOD TRANSFUSION WITH CMP, CXR AND ANEMIA PANEL CHECKER. PT HAD ABNORMAL OUTPT RENAL FUNCTION AND HYPOKALEMIA AND WAS ADMITTED FOR TREATMENT AND EVALUATION OF ACUTE ILLNESS. Past Medical History Past Medical History: Coronary Artery Disease, Dementia, Diabetes, Dyslipidemia and Hypothyroidism Past Surgical History Surgical History: Hysterectomy and Ortho Surgery Family History Family Medical History: Diabetes Mellitus and Hypertension Medications Home Medications: Home Medications Medication Instructions Recorded Confirmed Type clopidogrel 75 mg tablet (Plavix) 75 mg PO DAILY 01/30/22 01/30/22 History hydralazine 25 mg tablet 25 mg PO TID 01/30/22 01/30/22 History insulin lispro 100 unit/mL 50 unit subcut TID 01/30/22 01/30/22 History subcutaneous pen insulin lispro 100 unit/mL 50 unit subcut TID 01/30/22 01/30/22 History subcutaneous solution lisinopril 5 mg tablet 5 mg PO QHS 01/30/22 01/30/22 History metoprolol succinate 25 mg 25 mg PO BID 01/30/22 01/30/22 History tablet,extended release 24 hr metoprolol succinate 25 mg 25 mg PO DAILY 01/30/22 01/30/22 History tablet,extended release 24 hr quetiapine 50 mg tablet,extended 50 mg PO QHS 01/30/22 01/30/22 History release 24 hr semaglutide 0.25 mg or 0.5 mg (2 0.25 mg subcut QWEEK 01/30/22 01/30/22 History mg/1.5 mL) subcutaneous pen injector (Ozempic) tramadol 50 mg tablet 50 mg PO QID 01/30/22 01/30/22 History dapagliflozin propanediol 5 mg 5 mg PO QDAY 03/28/23 03/28/23 History tablet (Farxiga) gabapentin 300 mg capsule 600 mg PO BID 03/28/23 03/28/23 History hydrochlorothiazide 25 mg tablet mg PO 03/28/23 03/28/23 History insulin detemir U-100 100 unit/mL 125 unit subcut QPM 03/28/23 03/28/23 History subcutaneous solution (Levemir U-100 Insulin) levothyroxine 50 mcg tablet 50 mcg PO QDAY 03/28/23 03/28/23 History meloxicam 15 mg tablet 15 mg PO QDAY 03/28/23 03/28/23 History metoprolol succinate 25 mg mg PO 03/28/23 History tablet,extended release 24 hr omeprazole 20 mg capsule,delayed 20 mg PO QDAY 03/28/23 03/28/23 History release rosuvastatin 10 mg tablet 10 mg PO QPM 03/28/23 03/28/23 History Allergies Allergies Allergy/AdvReac Type Severity Reaction Status Date / Time Iodinated Contrast Media Allergy Verified 03/05/21 13:28 iodine Allergy Verified 03/05/21 13:28 Labs 09/25/24 04:35 09/25/24 04:35 Labs: Laboratory WBC 3.9 X10^3/uL (3.6-10.0) 09/24/24 06:00 RBC 2.22 X10^6/uL (3.5-5.4) L 09/24/24 06:00 Hgb 6.6 g/dL (12.0-16.0) L* 09/24/24 06:00 Hct 19.2 % (36.0-47.0) L* 09/24/24 06:00 MCV 86.6 fL (80.0-100.0) 09/24/24 06:00 MCH 29.6 pg (27.0-34.0) 09/24/24 06:00 MCHC 34.2 g/dL (33.0-35.0) 09/24/24 06:00 RDW 19.7 % (11.6-16.5) H 09/24/24 06:00 Plt Count 126 X10^3/uL (150.0-450.0) L 09/24/24 06:00 MPV 7.3 fL (7.4-11.0) L 09/24/24 06:00 Neut % (Auto) 58.7 % (42.0-75.0) 09/24/24 06:00 Lymph % (Auto) 29.3 % (21.0-51.0) 09/24/24 06:00 Person % (Auto) 7.7 % (0.0-13.0) 09/24/24 06:00 Eos % (Auto) 3.8 % (0.9-2.9) H 09/24/24 06:00 Baso % (Auto) 0.5 % (0.2-1.0) 09/24/24 06:00 Neut # (Auto) 2.3 x10^3/uL (2.2-4.8) 09/24/24 06:00 Lymph # (Auto) 1.1 X10^3/uL (1.3-2.9) L 09/24/24 06:00 Person # (Auto) 0.3 x10^3/uL (0.3-0.8) 09/24/24 06:00 Eos # (Auto) 0.1 x10^3/uL (0.0-0.2) 09/24/24 06:00 Baso # (Auto) 0.0 X10^3/uL (0.0-0.1) 09/24/24 06:00 Absolute Nucleated RBC 0.0 /100WBC 09/24/24 06:00 Sodium 138 mmol/L (136-145) 09/24/24 06:00 Corrected Sodium 139 mmol/L (136-145) 09/24/24 06:00 Potassium 3.1 mmol/L (3.5-5.1) L 09/24/24 06:00 Chloride 109 mmol/L (98-107) H 09/24/24 06:00 Carbon Dioxide 22.9 mmol/L (21-32) 09/24/24 06:00 BUN 35 mg/dL (7-18) H 09/24/24 06:00 Creatinine 2.45 mg/dL (0.55-1.02) H 09/24/24 06:00 Est GFR (MDRD) Af Amer 25 (>60) L 09/24/24 06:00 Est GFR (MDRD) Non-Af 21 (>60) L 09/24/24 06:00 Glucose 122 mg/dL (65-99) H 09/24/24 06:00 Hemoglobin A1c 6.9 % 09/24/24 06:00 Uric Acid 5.4 mg/dL (2.6-6.0) 09/24/24 06:00 Calcium 7.7 mg/dL (8.5-10.1) L 09/24/24 06:00 Corrected Calcium 9.9 mg/dL (8.5-10.1) 09/24/24 06:00 Total Bilirubin 0.30 mg/dL (0.2-1.0) 09/24/24 06:00 AST 50 Units/L (15-37) H 09/24/24 06:00 ALT 40 Units/L (12-78) 09/24/24 06:00 Alkaline Phosphatase 195 Units/L (46-116) H 09/24/24 06:00 Total Protein 4.5 g/dL (6.4-8.2) L 09/24/24 06:00 Albumin 1.2 g/dL (3.4-5.0) L 09/24/24 06:00 Globulin 3.3 g/dL (2.5-4.5) 09/24/24 06:00 Albumin/Globulin Ratio 0.4 Ratio (1.1-2.1) L 09/24/24 06:00 TSH 3rd Generation 3.068 uIU/mL (0.358-3.74) 09/24/24 06:00 Blood Type A POSITIVE 09/24/24 12:33 Antibody Screen Negative 09/24/24 12:33 Crossmatch See Detail 09/24/24 12:33 Review of Systems Constitutional: Weakness Eyes: No Symptoms Reported ENT: No Symptoms Reported Respiratory: No Symptoms Reported Cardiovascular: No Symptoms Reported Gastrointestinal: Diarrhea Genitourinary: Frequency Musculoskeletal: Back Pain Skin: No Symptoms Reported Neurological: Weakness and Numbness (HX OF STABLE DEMENTIA) Oriented: Person Eyes: Normal Nose: Normal Throat: Dry Respiratory: RLL Diminished and LLL Diminished Cardiovascular: Normal Auscultation: Bowel Sounds: Increased Palpation: Normal Tenderness: Mild Skin: Decreased Turgur Musculoskeletal: Back:Lumbar and Motor Deficit Psychiatric: Depression Mood Description: Depressed Speech Pattern: Clear, Appropriate and Inappropriate (PT HAS MILD STABLE DEMENTIA AND HAS BOTH APPROPRIATE AND INAPPROPRIATE RESPONES) Assessment/Plan (1) Anemia: Qualifiers: Anemia type: unspecified type Qualified Code(s): D64.9 - Anemia, unspecified Status: Acute Plan: ADMIT, TYPE AND SCREEN, TRANSFUSE 2 UNITS OF PRBC PER PROTOCL ANEMIA PANEL AND STOOL STUDIES GENTLE IV HYDRATION WITH STRICT I&OS REPEAT AM LABS, POTASSIUM REPLACEMENT BP CONTROL, VERIFY HOME MEDICATIONS (2) UTI (urinary tract infection): Qualifiers: Hematuria presence: without hematuria Urinary tract infection type: site unspecified Qualified Code(s): N39.0 - Urinary tract infection, site not specified Status: Acute (3) Diabetes: Qualifiers: Diabetes mellitus complication status: with hyperglycemia Diabetes mellitus 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
[2024-09-25] MEDS: MAG-OX TAB PO SCH (08:59)
[2024-09-25] MEDS: K-DUR TAB 20 MEQ PO SCH (08:59)
[2024-09-25] MEDS: FLAGYL TAB 500 MG PO SCH (18:04)
[2024-09-25] MEDS: NovoLIN R (or HumuLIN R) SUBCUT PRN (20:47)
[2024-09-26 04:58] LABS: BASOPHILS % (AUTO) 0.8 % (0.2-1.0); EOSINOPHILS # (AUTO) 0.1 x10^3/uL (0.0-0.2); HEMATOCRIT 23.6 % (36.0-47.0); HEMOGLOBIN 8.1 g/dL (12.0-16.0); LYMPHOCYTES # (AUTO) 1.1 X10^3/uL (1.3-2.9); LYMPHOCYTES % (AUTO) 21.6 % (21.0-51.0); MEAN CORPUSCULAR HEMOGLOBIN 29.6 pg (27.0-34.0); MEAN CORPUSCULAR HGB CONC 34.2 g/dL (33.0-35.0); MEAN CORPUSCULAR VOLUME 86.3 fL (80.0-100.0); MEAN PLATELET VOLUME 7.1 fL (7.4-11.0); MONOCYTES # (AUTO) 0.4 x10^3/uL (0.3-0.8); NEUTROPHILS # (AUTO) 3.4 x10^3/uL (2.2-4.8); NEUTROPHILS % (AUTO) 67.6 % (42.0-75.0); PLATELET COUNT 168 X10^3/uL (150.0-450.0); RED BLOOD COUNT 2.73 X10^6/uL (3.5-5.4); RED CELL DISTRIBUTION WIDTH 20.1 % (11.6-16.5)
[2024-09-26 05:08] LABS: ALBUMIN 1.3 g/dL (3.4-5.0); CALCIUM 7.6 mg/dL (8.5-10.1); CARBON DIOXIDE 20.2 mmol/L (21-32); COR CA(FOR HYPOALB) 9.8 mg/dL (8.5-10.1); CREATININE 2.06 mg/dL (0.55-1.02); MAGNESIUM 1.4 mg/dL (2.0-2.9); POTASSIUM 3.7 mmol/L (3.5-5.1); TOTAL PROTEIN 5.1 g/dL (6.4-8.2)
[2024-09-26 05:57] LABS: ANISOCYTOSIS 1+; OVALOCYTES 1+; PLATELET MORPHOLOGY COMMENT NORMAL (NORMAL); TEAR DROP CELLS 1+
[2024-09-26] MEDS: MAGNESIUM SULFATE 1 GRAM/100 mL PREMIX 1 G/100 ML BAG IV SCH (09:50)
[2024-09-26] MEDS: KLOR-CON 10 MEQ TAB PO NR (09:50)
[2024-09-26 10:47] VITALS: O2SAT 100
--- NOTE | 2024-09-26 13:25 | RAD ---
EXAM:CHEST, 1 VIEWHISTORY:SOB;COMPARISON:Prior study or studies were utilized for comparison during interpretation with the most relevant dated 09/24/2024TECHNIQUE:CHEST, 1 VIEWFINDINGS:Chest:Lines and tubes: NoneMediastinum: Cardiac and mediastinal shadow is within normal limits for size and contour.Pulmonary vessels: No pulmonary vascular congestion.Lung brock: No suspicious airspace opacity.Pleura: No effusion. No pneumothorax.Bones and soft tissues: No acute osseous or soft tissue abnormality.IMPRESSION:1. No acute cardiopulmonary abnormalityTHIS IS AN ELECTRONICALLY VERIFIED FINAL REPORT09/26/2024 1:22 PM - Electronically signed by Vernon López MD
[2024-09-26] MEDS: CONSULT PHARMACY - POTASSIUM & MAGNESIUM XX SCH (13:40)
--- NOTE | 2024-09-26 14:30 | CT ---
EXAM: ABDOMEN W/O CON HISTORY: ABD PAIN; HTN, DM HYSTERECTOMY, ORTHO COMPARISON: CT abdomen and pelvis 11/06/2022 TECHNIQUE: Multiple CT axial images of the abdomen were obtained without IV contrast. Coronal and sagittal image s were reconstructed. Dose reduction techniques included Automated Exposure Control (AEC) and adjustm ent of mA and kV. FINDINGS: Small nodule in the posterior right costophrenic angle appear smaller. It measures 6 mm, previously 9. Heart size is normal. Atherosclerotic calcification is present in the coronary arteries. The patient has anasarca with generalized edema. This is manifested as increased density in the subcu taneous fat and the intra-abdominal fat. This is associated with small volume perihepatic and left p ericolic gutter ascites. Otherwise liver has normal size and density. Partially calcified gallstone is present in a partially contracted gallbladder. There may be wall thickening in the gallbladder; recommend correlation with sonography. The spleen is normal in size and shape. The adrenal glands are normal. Probable normal pancreas; the surrounding retroperitoneal edema is ve ry similar in severity to the subcutaneous edema from the anasarca. Severe right hydronephrosis is present with more focal perirenal edema. There are calcifications in the right and left renal tiago, but these are likely vascular. The right ureter is dilated down to th e very last image in the upper pelvis. No significant left hydroureteronephrosis. The bowel is not dilated. There is no wall thickening in the bowel or edema around the bowel. Degenerative spondylitic changes are present in the spine. IMPRESSION: 1. Severe right hydroureteronephrosis 2. Cholelithiasis with possible wall thickening; recommend correlation with sonography 3. Anasarca with minimal ascites 4. Smaller right lower lobe lung nodule THIS IS AN ELECTRONICALLY VERIFIED FINAL REPORT 09/26/2024 2:26 PM - Electronically signed by Bernabe Schaefer MD
[2024-09-26 17:58] LABS: AMYLASE 23 Units/L (25-115); LIPASE 55 Units/L (16-77)
[2024-09-26] MEDS: NORCO 5/325 MG TAB PO PRN (23:23)
[2024-09-27 04:54] LABS: BASOPHILS % (AUTO) 1.1 % (0.2-1.0); EOSINOPHILS # (AUTO) 0.2 x10^3/uL (0.0-0.2); EOSINOPHILS % (AUTO) 4.9 % (0.9-2.9); HEMATOCRIT 23.7 % (36.0-47.0); HEMOGLOBIN 8.1 g/dL (12.0-16.0); LYMPHOCYTES # (AUTO) 1.5 X10^3/uL (1.3-2.9); LYMPHOCYTES % (AUTO) 36.9 % (21.0-51.0); MEAN CORPUSCULAR HEMOGLOBIN 29.3 pg (27.0-34.0); MEAN CORPUSCULAR VOLUME 86.3 fL (80.0-100.0); MEAN PLATELET VOLUME 6.9 fL (7.4-11.0); MONOCYTES # (AUTO) 0.4 x10^3/uL (0.3-0.8); MONOCYTES % (AUTO) 9.6 % (0.0-13.0); NEUTROPHILS # (AUTO) 1.9 x10^3/uL (2.2-4.8); NEUTROPHILS % (AUTO) 47.5 % (42.0-75.0); PLATELET COUNT 166 X10^3/uL (150.0-450.0); RED BLOOD COUNT 2.75 X10^6/uL (3.5-5.4); WHITE BLOOD COUNT 4.1 X10^3/uL (3.6-10.0)
[2024-09-27 05:30] LABS: ALBUMIN 1.3 g/dL (3.4-5.0); CALCIUM 7.7 mg/dL (8.5-10.1); CARBON DIOXIDE 21.4 mmol/L (21-32); COR CA(FOR HYPOALB) 9.9 mg/dL (8.5-10.1); CREATININE 1.83 mg/dL (0.55-1.02); MAGNESIUM 1.9 mg/dL (2.0-2.9); POTASSIUM 3.6 mmol/L (3.5-5.1)
[2024-09-27 06:34] LABS: ANISOCYTOSIS 1+; PLATELET MORPHOLOGY COMMENT NORMAL (NORMAL); TEAR DROP CELLS SLIGHT
[2024-09-27] MEDS ORDERED: CONSULT PHARMACY - POTASSIUM & MAGNESIUM XX SCH (07:00)
[2024-09-27 08:03] VITALS: BP 120/57; PULSE 97; RESP 18; TEMP 98.5
[2024-09-27] MEDS: K-RIDER 10 MEQ/100 ML WATER 10 MEQ/100 ML BAG IV SCH (08:11)
[2024-09-27] MEDS: MAGNESIUM SULFATE 1 GRAM/100 mL PREMIX 1 G/100 ML BAG IV SCH (08:11)
--- NOTE | 2024-09-27 12:26 | US ---
EXAM:GALL BLADDERHISTORY:POSSIBLE GALLSTONES;COMPARISON:CT abdomen 09/26/2024TECHNIQUE:57 images made by the armed security guard. Olivares scale and color-flow images of the right upper quadrant were obtained.FINDINGS:The liver has coarsened echogenicity suggesting medical liver disease. This is a nonspecific finding; frequent etiologies for this appearance include cirrhosis, hemochromatosis, hepatitis, and storage disorders. Slightly lobular contour of the liver is present. These findings might indicate hepatic cirrhosis. But the liver has a normal size.No mass or intrahepatic biliary duct dilatation is present. The intrahepatic inferior vena cava was imaged. The portal vein is patent with blood flow toward the liver. The visualized hepatic veins are patent with blood flow toward the right atrium. Hepatic artery was patent.Limited visualization of the pancreas shows no significant abnormality.The gallbladder is normally distended with no wall thickening or pericholecystic fluid. No echogenic stones were identified. The areas of increased density seen on the CT yesterday may have been due to sludge which is no longer present or due to very small stones which are not visible by sonography. No extrahepatic biliary duct dilatation; common duct is normal.The right kidney is normal in size and echogenicity. Moderate to severe hydronephrosis present. Renal pelvis measures 3.7 cm. Resistive index measures 0.77.Small volume perihepatic ascites is noted.IMPRESSION:1. Findings suggesting hepatic cirrhosis2. No sonographic evidence for cholelithiasis3. Severe right hydronephrosis4. Small volume perihepatic ascitesTHIS IS AN ELECTRONICALLY VERIFIED FINAL REPORT09/27/2024 12:22 PM - Electronically signed by Bernabe Schaefer MD
== END 2024-09-27 10:35 ==
LOC: ICU 08:46 → LTCLAB 08:46 → OUTPT REF 08:46
PROVIDERS: ADMIT Internal Medicine; ATTEND Internal Medicine
DX: A04.72 Enterocolitis due to Clostridium difficile, not specified as recurrent; E87.6 Hypokalemia; M62.81 Muscle weakness (generalized); I25.10 Atherosclerotic heart disease of native coronary artery without angina pectoris; Z66 Do not resuscitate; N18.9 Chronic kidney disease, unspecified; E11.65 Type 2 diabetes mellitus with hyperglycemia; R06.02 Shortness of breath; R91.1 Solitary pulmonary nodule; N13.6 Pyonephrosis; E03.8 Other specified hypothyroidism; D64.89 Other specified anemias; R18.8 Other ascites; L89.152 Pressure ulcer of sacral region, stage 2; B96.29 Other Escherichia coli [E. coli] as the cause of diseases classified elsewhere; Z16.23 Resistance to quinolones and fluoroquinolones; C67.9 Malignant neoplasm of bladder, unspecified; K80.80 Other cholelithiasis without obstruction; Z16.29 Resistance to other single specified antibiotic; E83.42 Hypomagnesemia; Z16.11 Resistance to penicillins; Z79.4 Long term (current) use of insulin; N17.8 Other acute kidney failure; L89.619 Pressure ulcer of right heel, unspecified stage

== ENCOUNTER 2025-02-11 12:47 | Observation (INO) ==
--- NOTE | 2025-02-11 13:18 | DR.H&P ---
H&P History & Physical for Day of: H&P Date: 02/11/25 Chief Complaint Chief Complaint: wound to lower abdomen leaking urine History of Present Illness History of Present Illness: PT IS 69F, RESIDENT OF [facility], DI RECT ADMIT WITH CO ABDOMINAL PAIN, NON HEALING LOWER ABDOMINAL WOUND WITH CONCERN FOR FISTULA TO BLADDER. PT HAS BEEN ASSESSED BY DR OLIVA. PT HAS BEEN ON ATBX FOR UTI. PT HAD LABS LAST WEEK. PT'S LAST CT WAS IN OCTOBER WITHOUT CONTRAST DUE TO RENAL FALIURE. PT HAS PMH OF BLADDER CANCER, HTN, HYPOTHYROIDISM Past Medical History Past Medical History: Coronary Artery Disease, Dementia, Diabetes, Dyslipidemia and Hypothyroidism Past Surgical History Surgical History: Hysterectomy and Ortho Surgery Family History Family Medical History: Diabetes Mellitus and Hypertension Medications Home Medications: Home Medications Medication Instructions Recorded Confirmed Type clopidogrel 75 mg tablet (Plavix) 75 mg PO DAILY 01/3009/24/24 History tramadol 50 mg tablet 50 mg PO Q8H PRN Pain 09/24/24 History levothyroxine 50 mcg tablet 50 mcg PO QDAY 03/28/23 History allopurinol 300 mg tablet 300 mg PO DAILY 09/24/2406/08 History aspirin 81 mg tablet,delayed 81 mg PO DAILY 09/24/24 0 09/25/24 History release cholecalciferol (vitamin D3) 125 125 mcg PO QDAY 09/2409/24/24 History mcg (5,000 unit) tablet docusate sodium 100 mg capsule 100 mg PO DAILY 5 09/24/24 History (Colace) famotidine 20 mg tablet 20 mg PO BID 09/24/24 History hydrocodone 7.5 mg-acetaminophen 1 tab PO Q6H PRN Pain 09/24/24 09/24/24 History 325 mg tablet insulin glargine 100 unit/mL 80 unit subcut HS 5 09/24/24 History subcutaneous solution (Lantus U-100 Insulin) insulin regular human 100 unit/mL 1 sliding scale dose subcut 09/24/24 09/24/24 History injection solution USEASDIRECTD metoprolol succinate 25 mg 25 mg PO DAILY 09/24/2406/08 History tablet,extended release 24 hr multivitamin 1 tab PO DAILY 09/24/2409/15 History polyethylene glycol 3350 17 17 g PO DAILY 09/24/2406/08 History gram/dose oral powder quetiapine 150 mg tablet 150 mg PO HS 09/24/24 History Allergies Allergies Allergy/AdvReac Type Severity Reaction Status Date / Time Iodinated Contrast Media Allergy Verified 03/05/21 13:28 iodine Allergy Verified 03/05/21 13:28 Review of Systems Constitutional: Chills and Weakness Eyes: No Symptoms Reported ENT: No Symptoms Reported Respiratory: Cough Cardiovascular: No Symptoms Reported Gastrointestinal: Abdominal Pain Genitourinary: Incontinence Musculoskeletal: Back Pain Skin: Wound Neurological: Weakness Oriented: Normal Eyes: Normal Nose: Normal Throat: Normal Respiratory: RLL Diminished and LLL Diminished Cardiovascular: Normal Auscultation: Bowel Sounds: Normal Tenderness: RUQ, Suprapubic and Mild Skin: Decreased Turgur and Wound Psychiatric: Normal Mood Description: Calm Speech Pattern: Clear and Appropriate Assessment/Plan (1) Acute on chronic renal failure: Status: Acute Plan: ADMIT, IV HYDRATION IV MERREM, BLOOD CULTURES ON ADMISSION CONSULT DR OLIVA PAIN CONTROL, BP MONITORING VERIFY HOME MEDICATIONS WOUND CARE (2) Enterovesical fistula: Status: Acute (3) Chronic wound: Status: None (4) UTI (urinary tract infection): Qualifiers: Hematuria presence: without hematuria Urinary tract infection type: site unspecified Qualified Code(s): N39.0 - Urinary tract infection, site not specified Status: Acute (5) HTN (hypertension): Qualifiers: Hypertension type: essential hypertension Qualified Code(s): I10 - Essential (primary) hypertension Status: Acute
[2025-02-11 14:12] LABS: MEAN PLATELET VOLUME 7.8 fL (7.4-11.0); RED CELL DISTRIBUTION WIDTH 17.0 % (11.6-16.5)
[2025-02-11] MEDS: NS 1,000 ML IV 1,000 ML IV SCH (14:12)
[2025-02-11] MEDS: MERREM VIAL 1 G in NS 100 ML IV 100 ML IV SCH (14:12)
[2025-02-11 14:39] LABS: COR CA(FOR HYPOALB) 11.2 mg/dL (8.5-10.1); COR NA(FOR HYPERGLY) 138.0 mmol/L (136-145); CREATININE 3.95 mg/dL (0.55-1.02); eGFR NON BLACK RACES 12.0 (>60)
[2025-02-11 14:47] VITALS: BMI 28.4
[2025-02-11] MEDS ORDERED: NORCO 7.5/325 MG TAB PO PRN (15:17)
[2025-02-11] MEDS: NovoLIN R (or HumuLIN R) SUBCUT PRN (17:37)
[2025-02-11] MEDS: SNACK - Diabetic Appropriate PO SCH (21:04)
--- NOTE | 2025-02-11 21:26 | CT ---
EXAM: ABDOMEN/PELVIS W/O CON HISTORY: Abdominal PAIN; COMPARISON: CT of the abdomen and pelvis without contrast November 06, 2024 TECHNIQUE: CT of the abdomen and pelvis without contrast FINDINGS: 7 mm noncalcified pulmonary nodule right lung base abutting the pleura, nonspecific. Mild hypoventilatory changes in the lung bases. Sensitivity is reduced without intravenous contrast. The abdominal aorta tapers normally. Cirrhotic changes of the liver are present. Small stones are noted in the gallbladder dependently. The gallbladder appears contracted. There is severe right hydronephrosis and severe right hydroureter of uncertain cause. This appearance is similar to the comparison CT study. No right renal or ureteral stones are identified. There is inflammatory stranding around the distal right ureter and involving the urinary bladder suggesting cystitis and infection in the distal ureter. No obstructing stone is visible. Left kidney is not obstructed. The left ureter tapers normally. Normal spleen contours. The pancreas is noninflamed. Stomach contains food material. Salguero catheter is present in the urinary bladder. There are locules of gas in the urinary bladder. There is a tract from the urinary bladder to the ventral abdomen containing locules of gas and fluid density which could represent fistulous tract versus patent urachus. There is mild inflammatory stranding around this tract. No bowel wall thickening. Small bowel is not obstructed. No sign of appendicitis. There is advanced erosion in the left hip joint which is similar in appearance to the comparison study.. IMPRESSION: Severe right hydronephrosis and severe right hydroureter. Inflammatory stranding and induration involving the distal right ureter and urinary bladder worrisome for urinary infection involving the ureter and the bladder. Urological consultation suggested. Fistulous track from the bladder to the ventral abdomen possibly the sequela of surgical involvement. There is mild stranding and induration along this tract suggesting the presence of infection/cellulitis without formed or drainable abscess. Severe erosion of the left hip joint, similar to the comparison CT examination. Hepatic cirrhosis. Cholelithiasis. 7 mm noncalcified pulmonary nodule right lung base abutting the pleura, too small to further characterize. Consider three-month CT follow-up. All CT scans at this facility use dose modulation, iterative reconstruction, and/or weight based dosing when appropriate to reduce radiation dose to as low as reasonably achievable. THIS IS AN ELECTRONICALLY VERIFIED FINAL REPORT 02/11/2025 9:23 PM - Electronically signed by Tristen Perera MD
[2025-02-12 05:54] LABS: MEAN PLATELET VOLUME 7.7 fL (7.4-11.0); RED CELL DISTRIBUTION WIDTH 16.6 % (11.6-16.5)
[2025-02-12 06:03] LABS: COR CA(FOR HYPOALB) 11.2 mg/dL (8.5-10.1); COR NA(FOR HYPERGLY) 140.0 mmol/L (136-145); CREATININE 3.44 mg/dL (0.55-1.02); eGFR NON BLACK RACES 14.0 (>60)
--- NOTE | 2025-02-12 08:52 | DR.PROGNOT ---
HOSPITAL PROGRESS NOTE Progress Note for Day of: Progress Note Date: 02/12/25 Chief Complaint Chief Complaint: Patient is complaining of moderate lower abdominal pain with moderate drainage of urine into the colostomy bag. CAT scan and fistulogram confirmed the presence of fistula between the bladder and abdominal wall. White count is 6.2, hemoglobin 9.3, platelet count 136, BUN 54 and creatinine 3.4, blood sugar 162. Patient is afebrile with soft flat abdomen and positive bowel sounds. Past Medical Family Social History Past Med/Fam/Surg Hx: No changes since H&P Allergies: Allergies Iodinated Contrast Media Allergy (Verified 03/05/21 13:28) iodine Allergy (Verified 03/05/21 13:28) Review Of Systems ROS: No change since H&P Vital Signs Vital Signs: Vital Signs Temperature 98.2 F Temperature 97.5 F Pulse Rate [Right Brachial] 91 Pulse Rate [Right Brachial] 89 Respiratory Rate 18 Respiratory Rate 19 Blood Pressure [Left Arm] 177/77 Blood Pressure [Left Arm] 159/72 O2 Sat by Pulse Oximetry 98 O2 Sat by Pulse Oximetry 97 Physical Exam Oriented: Normal Eyes: Normal Nose: Normal Throat: Normal Respiratory: Normal Cardiovascular: Normal GI:Auscultation: Normal GI: Tenderness: RUQ, Suprapubic and Mild Skin: Decreased Turgur and Wound Psychiatric: Normal Mood Description: Calm Speech Pattern: Clear and Appropriate Laboratory and Diagnostics 02/12/25 05:33 02/12/25 05:33 Labs: 02/11/25 16:39 Abdomen Wound Gram Stain - Final 02/11/25 16:39 Abdomen Wound Culture - Preliminary Laboratory WBC 6.2 X10^3/uL (3.6-10.0) 02/12/25 05:33 RBC 3.30 X10^6/uL (3.5-5.4) L 02/12/25 05:33 Hgb 9.3 g/dL (12.0-16.0) L 02/12/25 05:33 Hct 28.0 % (36.0-47.0) L 02/12/25 05:33 MCV 84.9 fL (80.0-100.0) 02/12/25 05:33 MCH 28.3 pg (27.0-34.0) 02/12/25 05:33 MCHC 33.4 g/dL (33.0-35.0) 02/12/25 05:33 RDW 16.6 % (11.6-16.5) H 02/12/25 05:33 Plt Count 136 X10^3/uL (150.0-450.0) L 02/12/25 05:33 MPV 7.7 fL (7.4-11.0) 02/12/25 05:33 Neut % (Auto) 75.3 % (42.0-75.0) H 02/12/25 05:33 Lymph % (Auto) 13.1 % (21.0-51.0) L 02/12/25 05:33 Bowman % (Auto) 6.9 % (0.0-13.0) 02/12/25 05:33 Eos % (Auto) 4.2 % (0.9-2.9) H 02/12/25 05:33 Baso % (Auto) 0.5 % (0.2-1.0) 02/12/25 05:33 Neut # (Auto) 4.7 x10^3/uL (2.2-4.8) 02/12/25 05:33 Lymph # (Auto) 0.8 X10^3/uL (1.3-2.9) L 02/12/25 05:33 Bowman # (Auto) 0.4 x10^3/uL (0.3-0.8) 02/12/25 05:33 Eos # (Auto) 0.3 x10^3/uL (0.0-0.2) H 02/12/25 05:33 Baso # (Auto) 0.0 X10^3/uL (0.0-0.1) 02/12/25 05:33 Absolute Nucleated RBC 0.1 /100WBC 02/12/25 05:33 Sodium 138 mmol/L (136-145) 02/12/25 05:33 Corrected Sodium 140 mmol/L (136-145) 02/12/25 05:33 Potassium 4.3 mmol/L (3.5-5.1) 02/12/25 05:33 Chloride 105 mmol/L (98-107) 02/12/25 05:33 Carbon Dioxide 24.0 mmol/L (21-32) 02/12/25 05:33 BUN 54 mg/dL (7-18) H 02/12/25 05:33 Creatinine 3.44 mg/dL (0.55-1.02) H 02/12/25 05:33 Est GFR (MDRD) Af Amer 17 (>60) L 02/12/25 05:33 Est GFR (MDRD) Non-Af 14 (>60) L 02/12/25 05:33 Glucose 181 mg/dL (65-99) H 02/12/25 05:33 POC Glucose (mg/dL) 162 mg/dL (65-99) H 02/12/25 05:35 Lactic Acid 1.3 mmol/L (0.4-2.0) 02/11/25 13:56 Calcium 9.8 mg/dL (8.5-10.1) 02/12/25 05:33 Corrected Calcium 11.2 mg/dL (8.5-10.1) H 02/12/25 05:33 Total Bilirubin 0.30 mg/dL (0.2-1.0) 02/12/25 05:33 AST 21 Units/L (15-37) 02/12/25 05:33 ALT 30 Units/L (12-78) 02/12/25 05:33 Alkaline Phosphatase 208 Units/L (46-116) H 02/12/25 05:33 Total Protein 7.7 g/dL (6.4-8.2) 02/12/25 05:33 Albumin 2.3 g/dL (3.4-5.0) L 02/12/25 05:33 Globulin 5.4 g/dL (2.5-4.5) H 02/12/25 05:33 Albumin/Globulin Ratio 0.4 Ratio (1.1-2.1) L 02/12/25 05:33 Assessment and Plan 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 Needs urology consultation and cystoscopy. 2: Right hydro nephrosis ,urinary tract infection. On IV antibiotics pending final culture reports 3: Anemia. Chronic hematuria and blood loss. To obtain CEA level and future colonoscopy. 4: Diabetes mellitus
[2025-02-12] MEDS: HEMOCYTE PLUS PO SCH (08:55)
[2025-02-12] MEDS: MILK OF MAGNESIA PO SCH (08:55)
[2025-02-12] MEDS: TOPROL XL PO SCH (08:55)
--- NOTE | 2025-02-12 09:02 | EKG ---
Test Reason : chest pain Blood Pressure : */* mmHG Vent. Rate : 96 BPM Atrial Rate : 96 BPM P-R Int : 146 ms QRS Dur : 116 ms QT Int : 386 ms P-R-T Axes : 40 -62 72 degrees QTc Int : 487 ms Normal sinus rhythm Left anterior fascicular block Left ventricular hypertrophy with QRS widening ( R in aVL , Marine product ) Possible Lateral infarct , age undetermined Abnormal ECG No previous ECGs available Confirmed by Adiel Chan MD ([id number]) on 02/12/2025 12:55:20 PM Referred By: Confirmed By: Adiel Chan MD
[2025-02-12 15:34] VITALS: RESP 18
[2025-02-12] MEDS: PHARMACY CONSULT - MEROPENEM XX SCH (19:51)
[2025-02-12] MEDS: PHARMACY CONSULT LTC MEDICATIONS XX SCH (19:51)
[2025-02-12] MEDS: PHARMACY CONSULT XX SCH (19:51)
[2025-02-12 20:03] VITALS: BP 159/93; PULSE 97; TEMP 98.1; O2SAT 97
[2025-02-12] MEDS ORDERED: COLACE CAP 100 MG PO SCH (21:00)
--- NOTE | 2025-02-13 08:34 | RAD ---
EXAM: CHEST, 1 VIEW HISTORY: SOB; COMPARISON: 09/26/2024 FINDINGS: The cardiomediastinal silhouette is stable. No acute airspace disease. No pneumothorax or effusion. No acute osseous abnormality. IMPRESSION: No acute cardiopulmonary disease. THIS IS AN ELECTRONICALLY VERIFIED FINAL REPORT 02/13/2025 8:27 AM - Electronically signed by Rodolfo Galloway MD
--- NOTE | 2025-02-13 11:11 | RAD ---
EXAM: CHEST, 1 VIEW HISTORY: Chest pain; HTN, DM HYSTERECTOMY, ORTHO COMPARISON: 02/11/2025 FINDINGS: The lungs are clear. No pneumothorax or effusion. Heart size is normal. There are degenerative changes in the spine. IMPRESSION: 1. No significant abnormality THIS IS AN ELECTRONICALLY VERIFIED FINAL REPORT 02/13/2025 11:07 AM - Electronically signed by Bernabe Schaefer MD
== END 2025-02-12 20:25 | disposition short-term general hospital (02) ==
LOC: INTOOBSV 13:15 → MED/SURG 13:15
PROVIDERS: ADMIT Internal Medicine; ATTEND Internal Medicine
DX: R07.89 Other chest pain; I25.10 Atherosclerotic heart disease of native coronary artery without angina pectoris; S31.109A Unspecified open wound of abdominal wall, unspecified quadrant without penetration into peritoneal cavity, initial encounter; R91.1 Solitary pulmonary nodule; R06.02 Shortness of breath; E11.65 Type 2 diabetes mellitus with hyperglycemia; Z16.23 Resistance to quinolones and fluoroquinolones; B96.4 Proteus (mirabilis) (morganii) as the cause of diseases classified elsewhere; N17.8 Other acute kidney failure; R10.84 Generalized abdominal pain; D63.1 Anemia in chronic kidney disease; K74.69 Other cirrhosis of liver; Z16.29 Resistance to other single specified antibiotic; R97.0 Elevated carcinoembryonic antigen [CEA]; R94.31 Abnormal electrocardiogram [ECG] [EKG]; C68.9 Malignant neoplasm of urinary organ, unspecified; R31.9 Hematuria, unspecified; R26.89 Other abnormalities of gait and mobility; K80.80 Other cholelithiasis without obstruction; E87.1 Hypo-osmolality and hyponatremia; R74.8 Abnormal levels of other serum enzymes; Z79.4 Long term (current) use of insulin; E03.8 Other specified hypothyroidism; M19.90 Unspecified osteoarthritis, unspecified site; N18.9 Chronic kidney disease, unspecified; E78.5 Hyperlipidemia, unspecified; D50.8 Other iron deficiency anemias; N32.1 Vesicointestinal fistula; I12.9 Hypertensive chronic kidney disease with stage 1 through stage 4 chronic kidney disease, or unspecified chronic kidney disease; X58.XXXA Exposure to other specified factors, initial encounter; N13.39 Other hydronephrosis